=== PATIENT | female | born 1935 | race Hispanic/Latino ===

== ENCOUNTER 2017-08-26 19:39 | Observation (INO) | payer OTHER ==
[~2017-08-26] VITALS: Ht 160 cm; Wt 77.6 kg
[~2017-08-26 19:39] MED LIST: B12 IM; DEXILANT60 MG PO; LOVENOX40 MG/0.4 SC; NORCO 7.5-3251 EACH PO; PEPTO-BISM262 MG/15 PO; VICODIN; VIT D; VITAMIN D; Z.0.NEXIUM40 MG PO; [UNRECOGNIZED DRUG - OTHER] PO
--- NOTE | 2017-08-26 21:21 | Diagnostic Imaging Report ---
History:Blurry vision, Comparison studies:None Technique: Axial images were obtained from the skull base to the vertex. Coronal and sagittal images reconstructed from the axial data. Intravenous contrast: None Findings: Scalp/skull: No acute abnormalities. Right parietal hemangioma. Extra-axial spaces: No masses. No fluid collections. Brain sulci: Mildly prominent. Ventricles: Mild compensatory dilatation. No hydrocephalus. Parenchyma: Few hypodensities in the supratentorial white matter are small vessel ischemic changes. Left thalamocapsular and subinsular small chronic lacunar infarcts. No masses, hemorrhage, acute or chronic cortical vascular insults. Sellar/suprasellar region: No abnormalities. Craniocervical junction: Patent foramen magnum. No Chiari one malformation. Incidental findings: Atherosclerotic calcifications in the carotid siphons . Impression: No acute abnormalities. Chronic findings: 1. Mild generalized volume loss. 2. Mild supratentorial white matter small vessel ischemic changes. Signed by: DR Aba Kumari M.D. on 08/26/2017 9:18 PM
[2017-08-26] MEDS ORDERED: SODIUM CHLORIDE 0.9% 1000ML 1,000 ML IV STA (23:03)
[2017-08-26] MEDS ORDERED: ASPIRIN 325 MG TAB EC PO STA (23:03)
[2017-08-26] MEDS ORDERED: ASPIRIN 325 MG TAB ONE (23:18)
[2017-08-26 23:31] LABS: BASOPHILS # (AUTO) 0.1 (0.0-0.1); BASOPHILS % 0.8 % (0.0-1.0); EOSINOPHILS # (AUTO) 0.3 (0.0-0.4); EOSINOPHILS % 4.4 % (0.0-6.0); HEMATOCRIT 36.4 % (34.2-44.1); HEMOGLOBIN 11.9 g/dL (12.0-16.0); LYMPHOCYTES # (AUTO) 3.4 (1.0-3.2); LYMPHOCYTES % 51.6 % (18.0-39.1); MEAN CORPUSCULAR HEMOGLOBIN 30.1 pg (28-32); MEAN CORPUSCULAR HGB CONC 32.7 g/dL (31-35); MEAN CORPUSCULAR VOLUME 91.9 fL (81-99); MONOCYTES # (AUTO) 0.4 (0.2-0.8); MONOCYTES % 5.3 % (4.4-11.3); NEUTROPHILS # (AUTO) 2.5 (2.1-6.9); NEUTROPHILS % 37.4 % (38.7-80.0); PLATELET COUNT 146 x10e3/uL (140-360); RED BLOOD COUNT 3.96 x10e6/uL (3.6-5.1); RED CELL DISTRIBUTION WIDTH 15.6 % (11.7-14.4)
[2017-08-26 23:41] LABS: INR 0.92; PROTHROMBIN TIME 12.8 seconds (11.9-14.5)
[2017-08-26 23:48] LABS: ALANINE AMINOTRANSFERASE 12 IU/L (0-55); ALBUMIN 3.7 g/dL (3.5-5.0); ALBUMIN/GLOBULIN RATIO 1.5 (0.8-2.0); ALKALINE PHOSPHATASE 61 IU/L (40-150); ANION GAP 10.4 mmol/L (8-16); BLOOD UREA NITROGEN 18 mg/dL (7-26); BUN/CREATININE RATIO 25 (6-25); CALCIUM 9.4 mg/dL (8.4-10.2); CARBON DIOXIDE 28 mmol/L (22-29); CHLORIDE 100 mmol/L (98-107); CREATINE KINASE 30 IU/L (29-168); CREATININE, SERUM 0.73 mg/dL (0.57-1.11); EST GLOMERULAR FILTRATION RATE > 60 ML/MIN (60-); GLUCOSE 119 mg/dL (74-118); MAGNESIUM 1.9 MG/DL (1.3-2.1); POTASSIUM 3.4 mmol/L (3.5-5.1); SODIUM 135 mmol/L (136-145)
--- NOTE | 2017-08-26 23:54 | Diagnostic Imaging Report ---
EXAMINATION: CHEST SINGLE (PORTABLE) INDICATION: Blurred vision COMPARISON: None FINDINGS: TUBES and LINES: None. LUNGS: Lungs are well inflated. There are bibasilar atelectasis. There is mild prominence of the central pulmonary vasculature, consistent with pulmonary venous congestion. PLEURA: No pleural effusion or pneumothorax. HEART AND MEDIASTINUM: The cardiomediastinal silhouette is unremarkable. BONES AND SOFT TISSUES: No acute osseous lesion. Soft tissues are unremarkable. UPPER ABDOMEN: No free air under the diaphragm. IMPRESSION: No acute thoracic abnormality. Signed by: Dr. Ivan Luo M.D. on 08/26/2017 11:51 PM
[2017-08-27] VITALS (8 sets, daily range): BP systolic 121–148; BP diastolic 56–91
[2017-08-27 00:24] LABS: BILIRUBIN,URINE NEGATIVE (NEGATIVE); KETONES,URINE NEGATIVE (NEGATIVE); LEUKOCYTE ESTERASE ,URINE TRACE (NEGATIVE); NITRITE,URINE NEGATIVE (NEGATIVE); PROTEIN,URINE DIPSTICK NEGATIVE (NEGATIVE); URINE UROBILINOGEN 0.2 mg/dL (0.2 - 1)
[2017-08-27 00:26] LABS: CLARITY,URINE SL CLOUDY (CLEAR); COLOR,URINE YELLOW (YELLOW)
[2017-08-27 00:36] LABS: BACTERIA,URINE FEW /HPF; EPITHELIAL CELLS,URINE FEW /LPF; MUCUS,URINE FEW (RARE); RBC,URINE 0-5 /HPF (0-5)
[2017-08-27] MEDS ORDERED: SODIUM CHLORIDE 0.9% 1000ML 1,000 ML IV SCH (00:39)
[2017-08-27 08:39] LABS: CREATINE KINASE MB 0.9 ng/mL (0.00-5.00)
[2017-08-27] MEDS ORDERED: HYDROCODONE/APAP 7.5MG-325MG 1 EA TAB PO PRN (08:45)
[2017-08-27] MEDS ORDERED: MECLIZINE HCL 12.5 MG TAB PO PRN (08:45)
[2017-08-27] MEDS: [UNRECOGNIZED DRUG - OTHER] PO SCH (09:00)
[2017-08-27] MEDS ORDERED: POTASSIUM CHLORIDE 10 MEQ TABCR PO NR (09:00)
[2017-08-27] MEDS: PANTOPRAZOLE SOD 40 MG TABEC PO SCH (09:13)
[2017-08-27] MEDS: ASPIRIN 325 MG TAB EC PO SCH (09:13)
[2017-08-27] MEDS: ENOXAPARIN SOD INJ 40 MG/0.4 ML SYR SC SCH (09:13)
--- NOTE | 2017-08-27 13:32 | History and Physical ---
Patient in observation. CHIEF COMPLAINT: Dizziness and lightheadedness with sitting and standing up. HISTORY: Patient is an 82-year-old female who lives by herself. She usually walks with a walker. Apparently yesterday, she had an episode of vertigo. She did not have any significant weakness, any chest pain or shortness of breath. Patient's EKG in the emergency room was otherwise normal sinus rhythm. No sign of arrhythmia. Patient also complained of some vision changes while she was having dizziness. She is completely back to normal now. She has no further symptoms at this time. No dizziness. No chest pain and no shortness of breath. PAST MEDICAL HISTORY: History of leukemia, lymphoma. She has also recurrent vertigo episodes with previous workup. Chronic osteoarthritic pain. She has a pain stimulator to the back and the left knee for chronic pain control. Overactive urinary bladder. SOCIAL HISTORY: Again, the patient lives by herself. She does have family support. No smoking. No regular drug use. No alcohol use. ALLERGIES: NO KNOWN ALLERGIES. HOME MEDICATIONS: [place], Dexilant, . PHYSICAL EXAMINATION VITAL SIGNS: Temperature is 98, blood pressure 140/63, pulse rate 68, respirations 18. GENERAL: The patient is not in acute distress. She is awake. HEENT: Normocephalic, atraumatic and nonicteric. NECK: Supple grossly. PULMONARY: Diminished breath sounds without any gross wheezes. CARDIOVASCULAR: Regular rate and rhythm. ABDOMEN: Soft and unremarkable. EXTREMITIES: No cyanosis or edema. NEUROLOGICAL: There is no gross focal deficit. Moving all extremities. LABORATORY: Sodium is 135, potassium 3.4, chloride 100, bicarb 28, BUN is 18, creatinine 0.7, glucose 118. WBC is 6.6, hemoglobin 11.9, hematocrit 36.4, and platelets 146,000. Urinalysis unremarkable. Coagulation is normal. CT scan of the brain and chest x-ray is otherwise unremarkable. IMPRESSION 1. Dizziness, resolved now: Most likely benign positional vertigo. Unlikely arrhythmia or any other abnormality. 2. Chronic baseline problems with recurrent vertigo episode. PLAN: Aspirin once a day. PT and OT today. Trial of meclizine. Get echocardiogram and carotid Doppler for baseline study. Will continue to keep the patient in observation for now. Job#: [id number] RI
[2017-08-27] MEDS: MECLIZINE HCL 12.5 MG TAB PO SCH ×2 (14:12→21:57)
--- NOTE | 2017-08-27 22:46 | Consultation ---
DATE OF CONSULTATION: August 27, 2017 NEUROLOGICAL CONSULTATION AGE: 82 DATE OF : 1935 TIME OF CONSULTATION: 5:00 p.m. REASON FOR CONSULTATION: Vertigo. HISTORY: This is an 82-year-old female, who has history of leukemia. She was at home. She lives alone. She was sitting, she stood, had sudden onset of dizziness, which she describes as spinning sensation of the head and the room. Her speech apparently became slower. There was no nausea, no vomiting. There was some blurred vision, but there was no diplopia, no facial paresthesia, no focal paresthesia of the arms or legs. She denies any loss of consciousness. She called the family, who finally brought her to the emergency room. Patient some time ago she fell and hit 1 side of the head and then, having this little dizzy spells. She has suffered dizzy spell for a long time because of history of pernicious anemia. She has been getting vitamin B12, and now, there has been diagnosis of leukemia over a week with history of chemotherapy. Occasionally, she says, she has some numbness, tingling sensation of both feet. No lower extremity pain, knee pain or the arms. She denies any diplopia, no speech, no swallowing difficulty at the present time. No chest pain or palpitation. PAST HISTORY: History of leukemia, lymphoma. She has chronic osteoarthritis, pain in the left leg after surgery and she has pain stimulator in the back. She does no smoking. She does not do drugs. No alcohol. ALLERGIES: NONE KNOWN. MEDICATIONS: She is taking Dexilant, [place]. Today's review, she is taking medication of meclizine, acetaminophen. She denies hypertension, diabetes, heart condition. She does have history of pernicious anemia and now, the history of leukemia. ALLERGIES: NONE KNOWN. SOCIAL HISTORY: As mentioned above. FAMILY HISTORY: Noncontributory. PHYSICAL EXAMINATION VITALS: Blood pressure 120/60, pulse 55, temperature 97.5. LUNGS: Clear to auscultation. HEART: Regular, sinus rhythm. No murmurs. ABDOMEN: Soft, nontender. No organomegaly. LOWER EXTREMITIES: No edema, no cyanosis, no clubbing. Pain in the left knee from previous surgery. NEURO: She is alert, oriented times 3. Speech clear. No dysarthria or dysphagia. CRANIAL NERVES: Pupils are both equal and reactive. Extraocular ocular movements were full. Visual field was normal. No facial weakness. Tongue protrudes midline. MOTOR POWER: Upper extremities shows no evidence of weakness in proximal or distal muscles. Lower extremities, able to elevate against gravity on right side, approximately 60 degrees on the left side. There is problem because of surgery in the left knee and is painful. Plantar flexion 5/5. Dorsiflexion of the ankle 5/5. No weakness detected. DEEP TENDON REFLEXES: Triceps, biceps, and radials are 1+. Knee jerks absent bilaterally. Ankle jerks absent bilaterally. Plantar stimulation down bilaterally. SENSORY: Touch and pinprick of the lower extremities seem to be okay. Vibration sense is diminished up to the ankles. HEAD: Normocephalic. NECK: Supple. Carotid pulsations are present bilaterally. There are no bruits. LABORATORY WORKUP: CBC was reviewed, which showed normal platelets 146,000. Chemistry: Sodium 154, potassium 3.4, BUN 18, creatinine 0.73. Estimated GFR 160. Liver enzymes are all normal. TSH normal. Vitamin B12 is 141. Patient receiving vitamin B12 shots, has long history of pernicious anemia. Urinalysis WBC 6-10, bacteria few, protein negative, blood trace. Urine culture pending. IMAGING: CT scan of the brain shows no acute pathology. There is some chronic small-vessel disease seen bilaterally. Carotid Doppler showed no evidence of flow impairment. IMPRESSIONS 1. Episodes of vertigo associated with blurred vision, spinning sensation, loss of balance, probably vestibular dysfunction. 2. Episodes of positional dizziness. 3. Questionable transient ischemic attack. 4. Leukemia. 5. Possible urinary tract infection. Will discuss with the patient. I talked to the also. I do not see we are dealing with anything serious. Definitely, main worry they have is the possibility of stroke. There is no evidence to suggest any significant stroke at all. I think the combination of leukemia, pernicious anemia seemed to be causing the probable unsteadiness and probable dizziness. At present time, I have no further testing for this patient. It was instructed she has to move slow. She has to avoid bending over or moving fast. Job#: [id number] CQ
[2017-08-28] VITALS: BP_SYST 117; BP_SYST 132; BP_DIAS 63; BP_DIAS 72
[2017-08-28 04:00] VITALS: BP 125/59
[2017-08-28] MEDS: MECLIZINE HCL 12.5 MG TAB PO SCH ×2 (05:34→16:01)
[2017-08-28 07:17] LABS: BLOOD UREA NITROGEN 14 mg/dL (7-26); BUN/CREATININE RATIO 21 (6-25); CALCIUM 8.7 mg/dL (8.4-10.2); CARBON DIOXIDE 30 mmol/L (22-29); CHLORIDE 106 mmol/L (98-107); CREATININE, SERUM 0.66 mg/dL (0.57-1.11); EST GLOMERULAR FILTRATION RATE > 60 ML/MIN (60-); GLUCOSE 84 mg/dL (74-118); SODIUM 142 mmol/L (136-145)
[2017-08-28 08:14] VITALS: BP 129/69
[2017-08-28] MEDS: ASPIRIN 325 MG TAB EC PO SCH (08:54)
[2017-08-28] MEDS: PANTOPRAZOLE SOD 40 MG TABEC PO SCH (08:54)
[2017-08-28] MEDS: ENOXAPARIN SOD INJ 40 MG/0.4 ML SYR SC SCH (08:54)
[2017-08-28] MEDS: [UNRECOGNIZED DRUG - OTHER] PO SCH (08:54)
[2017-08-28] MEDS ORDERED: ACETAMINOPHEN 325 MG TAB PO ONE (11:45)
[2017-08-28] MEDS ORDERED: ACETAMINOPHEN 325 MG TAB PO PRN (11:45)
[2017-08-28 14:03] VITALS: BP 122/62
[2017-08-28 17:01] VITALS: BP 126/58
--- NOTE | 2017-08-28 19:22 | Discharge Summary ---
Primary care physician: Dr. Sia Felix. Reformatory Attendant: Dr. Danish Venegas. FINAL DIAGNOSES: 1. Benign positional vertigo. 2. Dizziness, headaches, resolved. SUMMARY: An 82-year-old female with some dizziness. The patient has had previous dizziness, found to be sinus. The patient is otherwise stable. Meclizine did help. Dr. Venegas saw the patient. No further workup needed at this time. Carotid Doppler otherwise unremarkable. No blockage. CT scan unremarkable. Echocardiogram ejection fraction of 60%. Mild to moderate MR and mild PI along with left anterior enlargement, but the no sign of significant other abnormality acutely. Patient stable and discharged home with Claritin 10 mg daily, Zofran ODT for nausea and vomiting and on meclizine 12.5 mg q.6 hour p.r.n. for dizziness. Patient stable and discharged home today to follow up with Dr. Felix if any further symptoms. Job#: [id number]
== END 2017-08-28 18:28 | disposition home or self-care (01) ==
LOC: ER 19:39 → MED/SURG 08-27 01:05
PROVIDERS: ADMIT Internal Medicine; ATTEND Internal Medicine
DX: H81.10 Benign paroxysmal vertigo, unspecified ear (principal); C95.90 Leukemia, unspecified not having achieved remission; M19.90 Unspecified osteoarthritis, unspecified site; M25.562 Pain in left knee; M54.9 Dorsalgia, unspecified; G89.29 Other chronic pain; D51.0 Vitamin B12 deficiency anemia due to intrinsic factor deficiency; I34.0 Nonrheumatic mitral (valve) insufficiency; I37.1 Nonrheumatic pulmonary valve insufficiency; Z85.72 Personal history of non-Hodgkin lymphomas
CPT/HCPCS: 36415 ×2; 70450; 71045; 80048; 80053; 81001; 82550 ×2; 82553 ×2; 82607; 83735; 84443; 84484 ×2; 85025; 85610; 85730; 87086; 93005; 93306; 93880; 96360; 97116 ×2; 97161; 97530; 99284; G0378 ×2; J1650 ×2; J7030 ×2

== ENCOUNTER → 2017-11-13 | Day surgery (SDC) | payer OTHER ==
[~2017-11-13] MED LIST changes: +BUPIVACAINE 0.25%/EPI 30ML SDV INJ ONE; +DEXAMETHASONE SOD PHOS INJ 4 MG/ML VIAL ONE; +FENTANYL CITRATE/PF 100MCG/2 ML INJ ONE; +HYDROCODONE/APAP 7.5MG-325MG 1 EA TAB ONE; +LIDOCAINE HCL 2% LOCAL INJ 5 ML SDV VIAL INJ ONE; +ONDANSETRON HCL INJ 2 MG/ML VIAL ONE; +PROPOFOL IV EMULSION 10 MG/ML 20 ML VIAL ONE; +ROCURONIUM BROMIDE 10 MG/ML 5ML VIAL ONE; +SEVOFLURANE INHAL SOLN 250 ML PEN BTL ONE
--- OUTSIDE RECORDS SUMMARY | 2017-11-13 08:15 | XMS REPORT ---
Author Author [facility] Address Unknown Phone Unavailable Care Team Providers Care Corporate Health Consultant Name Role Phone SOHEILA MARTINEZ Unavailable Unavailable Problems This patient has no known problems. Allergies, Adverse Reactions, Alerts This patient has no known allergies or adverse reactions. Medications This patient has no known medications. Results Test Description Test Time Test Comments Text Results Atomic Results Result Comments CHEST SINGLE (PORTABLE) [place] [address] Patient Name: YOLA GODOY MR #: [id number] : 1935 Age/Sex: 82/F Req #: [id number] Adm Physician: Ordered by: SOHEILA MARTINEZ MD Report #: [id number] Location: ER Room/Bed: Procedure: [id number] DX/CHEST SINGLE (PORTABLE) Exam Date: 08/26/17 Exam Time: 2330 REPORT STATUS: Signed EXAMINATION: CHEST SINGLE (PORTABLE) INDICATION: Blurred vision COMPARISON: None FINDINGS: TUBES and LINES: None. LUNGS: Lungs are well inflated. There are bibasilar atelectasis. There is mild prominence of the central pulmonary vasculature, consistent with pulmonary venous congestion. PLEURA: No pleural effusion or pneumothorax. HEART AND MEDIASTINUM: The cardiomediastinal silhouette is unremarkable. BONES AND SOFT TISSUES: No acute osseous lesion. Soft tissues are unremarkable. UPPER ABDOMEN: No free air under the diaphragm. IMPRESSION: No acute thoracic abnormality. Signed by: Dr. Ivan Luo M.D. on 08/26/2017 11:51 PM Dictated By: IVAN DEL CID MD 50 Transcribed By: ORLY on 08/26/172350 COPY TO: SOHEILA MARTINEZ MD CT BRAIN WO [place] [address] Patient Name: YOLA GODOY MR #: [id number] : 1935 Age/Sex: 82/F Req # : [id number] Adm Physician: Ordered by: SOHEILA MARTINEZ MD Report #: [id number] Location: ER Room/Bed: Procedure: [id number] CT/CT BRAIN WO Exam Date: 08/26/17 Exam Time: 2009 REPORT STATUS: Signed History:Blurry vision, Comparison studies:None Technique: Axial images were obtained from the skull base to the vertex. Coronal and sagittal images reconstructed from the axial data. Intravenous contrast: None Findings: Scalp/skull: No acute abnormalities. Right parietal hemangioma. Extra-axial spaces: No masses. No fluid collections. Brain sulci: Mildly prominent. Ventricles : Mild compensatory dilatation. No hydrocephalus. Parenchyma: Few hypodensities in the supratentorial white matter are small vessel ischemic changes. Left thalamocapsular and subinsular small chronic lacunar infarcts. No masses, hemorrhage, acute or chronic cortical vascular insults. Sellar/ suprasellar region: No abnormalities. Craniocervical junction: Patent foramen magnum. No Chiari one malformation. Incidental findings: Atherosclerotic calcifications in the carotid siphons . Impression: No acute abnormalities. Chronic findings: 1. Mild generalized volume loss. 2. Mild supratentorial white matter small vessel ischemic changes. Signed by: DR Aba Kumari M.D. on 08/26/2017 9:18 PM Dictated By: ABA DAVIS MD 17 COPY TO: SOHEILA MARTINEZ MD
[2017-11-13 09:41] LABS: BASOPHILS % 0.4 % (0.0-1.0); EOSINOPHILS # (AUTO) 0.2 (0.0-0.4); EOSINOPHILS % 2.7 % (0.0-6.0); HEMATOCRIT 38.2 % (34.2-44.1); HEMOGLOBIN 12.5 g/dL (12.0-16.0); LYMPHOCYTES # (AUTO) 2.1 (1.0-3.2); LYMPHOCYTES % 37.4 % (18.0-39.1); MEAN CORPUSCULAR HGB CONC 32.7 g/dL (31-35); MEAN CORPUSCULAR VOLUME 91.8 fL (81-99); MONOCYTES # (AUTO) 0.5 (0.2-0.8); MONOCYTES % 8.6 % (4.4-11.3); NEUTROPHILS # (AUTO) 2.8 (2.1-6.9); NEUTROPHILS % 50.7 % (38.7-80.0); PLATELET COUNT 176 x10e3/uL (140-360); RED BLOOD COUNT 4.16 x10e6/uL (3.6-5.1); RED CELL DISTRIBUTION WIDTH 13.6 % (11.7-14.4)
[2017-11-13 10:00] LABS: CLARITY,URINE SL CLOUDY (CLEAR); COLOR,URINE YELLOW (YELLOW)
[2017-11-13 10:01] LABS: BILIRUBIN,URINE NEGATIVE (NEGATIVE); KETONES,URINE NEGATIVE (NEGATIVE); LEUKOCYTE ESTERASE ,URINE NEGATIVE (NEGATIVE); NITRITE,URINE NEGATIVE (NEGATIVE); PROTEIN,URINE DIPSTICK NEGATIVE (NEGATIVE); URINE UROBILINOGEN 0.2 mg/dL (0.2 - 1)
[2017-11-13 10:02] LABS: ALANINE AMINOTRANSFERASE 17 IU/L (0-55); ALBUMIN 4.1 g/dL (3.5-5.0); ALBUMIN/GLOBULIN RATIO 1.6 (0.8-2.0); ALKALINE PHOSPHATASE 62 IU/L (40-150); ANION GAP 12.5 mmol/L (8-16); BLOOD UREA NITROGEN 20 mg/dL (7-26); BUN/CREATININE RATIO 28 (6-25); CARBON DIOXIDE 30 mmol/L (22-29); CHLORIDE 104 mmol/L (98-107); CREATININE, SERUM 0.72 mg/dL (0.57-1.11); EST GLOMERULAR FILTRATION RATE > 60 ML/MIN (60-); GLUCOSE 92 mg/dL (74-118); POTASSIUM 3.5 mmol/L (3.5-5.1); SODIUM 143 mmol/L (136-145)
--- NOTE | 2017-11-13 10:10 | Diagnostic Imaging Report ---
PROCEDURE:CHEST 2 VIEWS TECHNIQUE:PA and lateral chest INDICATION:Preoperative evaluation for gallbladder surgery. COMPARISON:Patients [facility], DX, CHEST SINGLE (PORTABLE), 08/26/2017, 23:40. FINDINGS: Lungs are clear and symmetrically inflated. No pleural effusions. Normal heart size. Mildly tortuous thoracic aorta. Intact skeleton. Right humerus ligamentous anchor. CONCLUSION: No acute abnormality or interval change from August 2017. Dictated by: David Werner M.D. on 11/13/2017 at 10:11 Electronically approved by: David Werner M.D. on 11/13/2017 at 10:11
--- NOTE | 2017-11-13 16:30 | Operative Report ---
DATE OF PROCEDURE: November 13, 2017 PREOPERATIVE DIAGNOSES: 1. Cholecystitis. 2. Cholelithiasis. 3. Incarcerated umbilical hernia. POSTOPERATIVE DIAGNOSES: 1. Cholecystitis. 2. Cholelithiasis. 3. Incarcerated umbilical hernia. OPERATION PERFORMED: Laparoscopic cholecystectomy and repair of incarcerated umbilical hernia. ICT PROGRAMMER: HORTENCIA Feng. ANESTHESIA: General. COMPLICATIONS: None. ESTIMATED BLOOD LOSS: Minimal. DESCRIPTION OF PROCEDURE: With the patient lying in bed in the supine position and good general endotracheal anesthesia, the abdomen was prepped with Betadine solution and draped in the usual manner. A Veress needle was introduced into the right upper quadrant and pneumoperitoneum established without any difficulty. A 5 mm trocar was placed in the right subcostal region and a 5 mm video laparoscope was placed into the intra-abdominal cavity. Video laparoscopy at this point revealed as expected the umbilical hernia that had some incarcerated omentum contained within it. There were also some adhesions to the subumbilical area from the patient's previous surgeries. Another 5 mm trocar was placed in the right subcostal region and all of the adhesions were slowly and carefully taken down off of the anterior abdominal wall and the hernia contents were reduced back to the intra-abdominal cavity. After this was done an incision was made in the subumbilical area, carried down through the subcutaneous tissue and the hernia sac was then dissected circumferentially. The umbilicus was then detached from the hernia sac and hernia sac was opened and the excess was resected. An 11 mm trocar was then placed through the hernia defect and a 10 mm video laparoscope was placed into the intraabdominal cavity. Under direct vision another 5 mm trocar was placed in the right subcostal region. Video laparoscopy at this point revealed a distended gallbladder and no other abdominal findings other than the previously described adhesions and some omental adhesions to the gallbladder itself. The adhesions to the gallbladder were then taken down without any difficulty and the peritoneum overlying neck of the gallbladder was opened. The cystic duct was identified and followed to its junction with common duct. The cystic duct was then circumferentially dissected away from the common duct, doubly clipped and divided. Cystic artery was similarly doubly clipped and divided. The gallbladder was then slowly and carefully taken off of the liver bed using the cautery scissors and perfect hemostasis was ascertained. The gallbladder was grasped through the umbilical port and removed without any difficulty. Video laparoscopy was then again carried out. The liver bed was found to be perfectly dry. All the excess fluid was aspirated. The pneumoperitoneum was evacuated and all the trocars were removed under direct vision. The previously dissected hernia was then closed transversely using interrupted sutures of 0 Ethibond totally obliterating the defect without any tension. All layers were infiltrated on the way out with solution of 1/4 percent Marcaine. The umbilicus was then tacked back down to the midline fascia with 3-0 Vicryl. The subcutaneous tissue was approximated with 3-0 Vicryl and all puncture wounds were closed with subcuticular 5-0 Vicryl. Benzoin, Steri-Strips and dressings were applied. The sponge, lap, and needle count was correct. The patient tolerated the procedure well and returned to the recovery room in stable condition. Job#: [id number] HAMIDA
== END | disposition home or self-care (01) ==
LOC: OR 08:10
PROVIDERS: ATTEND Surgery
DX: K80.10 Calculus of gallbladder with chronic cholecystitis without obstruction (principal); K42.0 Umbilical hernia with obstruction, without gangrene; K82.8 Other specified diseases of gallbladder; G47.33 Obstructive sleep apnea (adult) (pediatric); R00.1 Bradycardia, unspecified
CPT/HCPCS: 36415; 47562; 49587; 71046; 80053; 81003; 85025; 88304; 93005; C1766; J1100; J2001; J2405

== ENCOUNTER 2018-09-20 16:57 | Observation (INO) | payer MEDICARE, OTHER ==
[~2018-09-20] VITALS: Ht 160 cm; Wt 74.6 kg
[~2018-09-20 16:57] MED LIST changes: -BUPIVACAINE 0.25%/EPI 30ML SDV INJ ONE; -DEXAMETHASONE SOD PHOS INJ 4 MG/ML VIAL ONE; -FENTANYL CITRATE/PF 100MCG/2 ML INJ ONE; -HYDROCODONE/APAP 7.5MG-325MG 1 EA TAB ONE; -LIDOCAINE HCL 2% LOCAL INJ 5 ML SDV VIAL INJ ONE; -ONDANSETRON HCL INJ 2 MG/ML VIAL ONE; -PROPOFOL IV EMULSION 10 MG/ML 20 ML VIAL ONE; -ROCURONIUM BROMIDE 10 MG/ML 5ML VIAL ONE; -SEVOFLURANE INHAL SOLN 250 ML PEN BTL ONE
[2018-09-20] MEDS ORDERED: LEUKERAN2 MG (17:30)
[2018-09-20] MEDS ORDERED: DICYCLOMINE HCL10 MG PO (17:30)
[2018-09-20] MEDS ORDERED: MELOXICAM7.5 MG PO (17:30)
[2018-09-20] MEDS ORDERED: MECLIZINE HCL12.5 MG PO (17:30)
[2018-09-20 17:50] LABS: BASOPHILS % 0.3 % (0.0-1.0); EOSINOPHILS # (AUTO) 0.1 (0.0-0.4); EOSINOPHILS % 1.3 % (0.0-6.0); HEMATOCRIT 36.9 % (34.2-44.1); HEMOGLOBIN 12.2 g/dL (12.0-16.0); LYMPHOCYTES % 48.4 % (18.0-39.1); MEAN CORPUSCULAR HEMOGLOBIN 29.4 pg (28-32); MEAN CORPUSCULAR HGB CONC 33.1 g/dL (31-35); MEAN CORPUSCULAR VOLUME 88.9 fL (81-99); MONOCYTES # (AUTO) 0.7 (0.2-0.8); MONOCYTES % 10.8 % (4.4-11.3); NEUTROPHILS # (AUTO) 2.4 (2.1-6.9); PLATELET COUNT 146 x10e3/uL (140-360); RED BLOOD COUNT 4.15 x10e6/uL (3.6-5.1); RED CELL DISTRIBUTION WIDTH 13.4 % (11.7-14.4)
[2018-09-20 18:02] LABS: CLARITY,URINE CLEAR (CLEAR); COLOR,URINE YELLOW (YELLOW); LEUKOCYTE ESTERASE ,URINE NEGATIVE (NEGATIVE); NITRITE,URINE NEGATIVE (NEGATIVE); PROTEIN,URINE DIPSTICK NEGATIVE (NEGATIVE)
[2018-09-20 18:03] LABS: BILIRUBIN,URINE NEGATIVE (NEGATIVE); KETONES,URINE 1+ (NEGATIVE); URINE UROBILINOGEN 0.2 mg/dL (0.2 - 1)
[2018-09-20 18:06] LABS: ALANINE AMINOTRANSFERASE 16 IU/L (0-55); ALBUMIN 4.3 g/dL (3.5-5.0); ALKALINE PHOSPHATASE 66 IU/L (40-150); ANION GAP 16.5 mmol/L (8-16); BLOOD UREA NITROGEN 23 mg/dL (7-26); BUN/CREATININE RATIO 30 (6-25); CALCIUM 9.8 mg/dL (8.4-10.2); CARBON DIOXIDE 25 mmol/L (22-29); CHLORIDE 100 mmol/L (98-107); CREATININE, SERUM 0.77 mg/dL (0.57-1.11); EST GLOMERULAR FILTRATION RATE > 60 ML/MIN (60-); GLUCOSE 93 mg/dL (74-118); POTASSIUM 3.5 mmol/L (3.5-5.1); SODIUM 138 mmol/L (136-145)
[2018-09-20 18:12] LABS: BACTERIA,URINE MANY /HPF; EPITHELIAL CELLS,URINE RARE /LPF
--- NOTE | 2018-09-20 18:17 | Diagnostic Imaging Report ---
EXAMINATION: PA and lateral views of the chest. COMPARISON: None CLINICAL HISTORY: chest 2 views DISCUSSION: Lines/tubes: None. Lungs: The lungs are well inflated and clear. No pneumonia or pulmonary edema. Pleura: No pleural effusion or pneumothorax. Heart and mediastinum: The cardiomediastinal silhouette is normal. Bones and soft tissues: No acute bony abnormalities. IMPRESSION: No acute cardiopulmonary abnormalities. Signed by: Dr. Dmitri Powell M.D. on 09/20/2018 6:13 PM
--- NOTE | 2018-09-20 19:09 | NUR ---
Bedside rounds completed with Danielle machinist 2nd shift nurse.
[2018-09-20 19:25] LABS: INR 0.89; PROTHROMBIN TIME 12.9 seconds (11.9-14.5)
[2018-09-20 19:26] LABS: PARTIAL THROMBOPLASTIN TIME 28.6 seconds (23.8-35.5)
[2018-09-20] MEDS ORDERED: ALBUTEROL/IPRATROPIUM 3 ML NEB NEB ONE (19:30)
[2018-09-20] MEDS ORDERED: METHYLPREDNISOLONE SOD SUCC 125 MG/2ML VIAL IV ONE (19:30)
[2018-09-20 19:37] LABS: CREATINE KINASE MB 1.1 ng/mL (0-5.0)
[2018-09-20] MEDS ORDERED: SODIUM CHLORIDE 0.9% 50ML 50 ML ONE (20:31)
[2018-09-20] MEDS ORDERED: IOPAMIDOL 370 MG/ML 200 ML INFUS..BTL INJ ONE (20:31)
--- NOTE | 2018-09-20 20:35 | Diagnostic Imaging Report ---
EXAMINATION: CT scan of the chest with contrast. TECHNIQUE: Helical CT images of the chest were performed from the lung apices to the level of the adrenal glands after the intravenous administration of 100 cc of Isovue 300. Coronal and sagittal reformatted images were obtained.Dose modulation, iterative reconstruction, and/or weight based adjustment of the mA/kV was utilized to reduce the radiation dose to as low as reasonably achievable. COMPARISON: None. CLINICAL HISTORY:Difficulty breathing DISCUSSION: LINES/TUBES: None. LUNGS AND AIRWAYS: Apical pleural-parenchymal scarring. Atelectasis in the lung bases. No pulmonary embolism. PLEURA: No pneumothorax or pleural effusions. HEART AND MEDIASTINUM: The thyroid gland is normal. Heart size is prominent. Mild vascular calcifications LYMPH NODES: There is no mediastinal, hilar or axillary lymphadenopathy. ABDOMEN: Bilateral renal cysts. Cholecystectomy. BONES AND SOFT TISSUES: No acute bony abnormalities. IMPRESSION: No pulmonary embolism. Signed by: Dr. Dmitri Powell M.D. on 09/20/2018 8:32 PM
[2018-09-20] MEDS ORDERED: ONDANSETRON HCL INJ 2MG/ML 2ML 2 MG/ML VIAL IV PRN (21:15)
[2018-09-20] MEDS ORDERED: SODIUM CHLORIDE 0.9% 1000ML 1,000 ML IV ONE (21:15)
[2018-09-20] MEDS ORDERED: CHOLESTYRAMINE P4 GM PO (22:39)
[2018-09-20 23:00] VITALS: BP 146/66
[2018-09-20] MEDS: ALBUTEROL/IPRATROPIUM 3 ML NEB NEB SCH (23:00)
--- NOTE | 2018-09-20 23:30 | NUR ---
RECEIVED PATIENT FROM ER. VIA WHEELCHAIR ACCOMPANIED BY FAMILY MEMBER AND STAFF. PATIENT IS ALERT AND ORIENTED. PATIENT HAS ON GOING 02 AT 2L/MIN AND TELEMETRY WITH PULSE OXIMETER. ASSISTED IN THE BED AND MADE COMFORTABLE.
[2018-09-21] VITALS (9 sets, daily range): BP systolic 111–149; BP diastolic 55–68
[2018-09-21] MEDS: METHYLPREDNISOLONE SOD SUCC 40 MG/ML VIAL 1ML IV SCH ×4 (00:41→17:02)
[2018-09-21 02:20] LABS: CREATINE KINASE MB 1.1 ng/mL (0-5.0)
[2018-09-21] MEDS ORDERED: IOPAMIDOL 370 MG/ML 200 ML INFUS..BTL INJ ONE (02:21)
[2018-09-21] MEDS ORDERED: SODIUM CHLORIDE 0.9% 50ML 50 ML ONE (02:21)
[2018-09-21] MEDS: ALBUTEROL/IPRATROPIUM 3 ML NEB NEB SCH ×2 (03:00→07:35)
[2018-09-21 06:28] LABS: BASOPHILS % 0.1 % (0.0-1.0); HEMATOCRIT 34.7 % (34.2-44.1); HEMOGLOBIN 11.7 g/dL (12.0-16.0); LYMPHOCYTES # (AUTO) 5.5 (1.0-3.2); MEAN CORPUSCULAR HEMOGLOBIN 29.8 pg (28-32); MEAN CORPUSCULAR HGB CONC 33.7 g/dL (31-35); MEAN CORPUSCULAR VOLUME 88.3 fL (81-99); MONOCYTES # (AUTO) 0.3 (0.2-0.8); MONOCYTES % 3.4 % (4.4-11.3); NEUTROPHILS # (AUTO) 2.5 (2.1-6.9); NEUTROPHILS % 30.4 % (38.7-80.0); PLATELET COUNT 132 x10e3/uL (140-360); RED BLOOD COUNT 3.93 x10e6/uL (3.6-5.1); RED CELL DISTRIBUTION WIDTH 13.3 % (11.7-14.4)
[2018-09-21 06:48] LABS: ALANINE AMINOTRANSFERASE 17 IU/L (0-55); ALBUMIN 3.7 g/dL (3.5-5.0); ALBUMIN/GLOBULIN RATIO 1.8 (0.8-2.0); ALKALINE PHOSPHATASE 62 IU/L (40-150); ANION GAP 13.7 mmol/L (8-16); BLOOD UREA NITROGEN 19 mg/dL (7-26); BUN/CREATININE RATIO 26 (6-25); CALCIUM 8.9 mg/dL (8.4-10.2); CARBON DIOXIDE 24 mmol/L (22-29); CHLORIDE 102 mmol/L (98-107); CREATININE, SERUM 0.72 mg/dL (0.57-1.11); EST GLOMERULAR FILTRATION RATE > 60 ML/MIN (60-); GLUCOSE 165 mg/dL (74-118); POTASSIUM 3.7 mmol/L (3.5-5.1); SODIUM 136 mmol/L (136-145)
--- NOTE | 2018-09-21 07:13 | NUR ---
pt resting in bed, family at bedside. no c/o pain or s/s distress at this time. will continue to monitor.
[2018-09-21 07:39] LABS: HYPOCHROMASIA SLIGHT; LYMPHOCYTES % (MANUAL) 53 % (19-48); METAMYELOCYTES % (MANUAL) 1 % (0-0); MONOCYTES % (MANUAL) 4 % (3.4-9.0); MYELOCYTES % (MANUAL) 1 % (0-0); NEUTROPHILS % (MANUAL) 35 % (40-74); PLATELET ESTIMATE SLIGHTLY DECREASED; PLATELET MORPHOLOGY COMMENT NORMAL; RBC MORPHOLOGY COMMENT NORMAL
--- NOTE | 2018-09-21 08:30 | NUR ---
pt had neb tx, became tachycardic and sob, shaking extremities and c/o chest discomfort. placed pt on o2, per tele running SR w/BBB. vs stable. MD on unit and aware. will continue to monitor.
[2018-09-21] MEDS ORDERED: AZITHROMYCIN 250 MG TAB PO ONE (09:00)
[2018-09-21 09:12] LABS: CREATINE KINASE MB 1.1 ng/mL (0-5.0)
[2018-09-21] MEDS: LORATADINE/PSEUDOEPHEDRINE 24 HR SR TAB PO SCH (09:59)
[2018-09-21] MEDS: FLUTICASONE PROPIONATE NASAL SPRAY NS SCH ×2 (09:59→17:02)
--- NOTE | 2018-09-21 12:49 | NUR ---
SOCIAL WORK INITIAL ASSESSMENT Beam Sealer to bedside to discuss plan of care with patient/family. CM/SW role and care transitions discussed. Anticipated discharge plan discussed along with duration of care. CM/SW discussed patients right to make decisions in care. CM/SW work hours given. Patient lives: IN HOUSE BY SELF Admit/Transfer: VIA ED POA/Emergency contact: DAUGHTER BRUCE [phone] AND OTHER DAUGHTER YOLA [phone] Current/Previous Home Health: NONE PCP/Follow-up Care: VIOLETA Current/Previous DME: LOUISE Other Services: NONE Employment Status: RETIRED Areas of Concerns: NONE Referral Needs: NONE Education Needs: NONE IMM/BROWNE given and signed (if applicable): UPON ADMISSION Goal for discharge: RETURN HOME CM/SW left business card at the bedside with contact information. Name and number was also written on the patients whiteboard. Patient verbalized understanding of discussion. CM will follow-up with ongoing discharge and transition of care needs.
[2018-09-21] MEDS: IPRATROPIUM BROMIDE 0.02% 2.5 ML NEB NEB SCH ×2 (13:55→20:30)
--- NOTE | 2018-09-21 14:25 | NUR ---
Visit made by the Spiritual Care Department Pastoral Visitor, Shelli Nolan. PV provided pastoral presence, prayer, hospitality, and supportive listening. Pastoral Visitor informed pt/family of the scope of [employer] and availability. JIMY HACKETT [employer] Utility Worker Spiritual Care Department O: [phone] Pager: [phone] ([phone] number calling from)
[2018-09-21] MEDS ORDERED: MONTELUKAST SODIUM 10 MG TAB PO SCH (21:00)
[2018-09-22] VITALS: BP 122/59
[2018-09-22] MEDS: METHYLPREDNISOLONE SOD SUCC 40 MG/ML VIAL 1ML IV SCH ×2 (00:32→05:34)
[2018-09-22] MEDS: IPRATROPIUM BROMIDE 0.02% 2.5 ML NEB NEB SCH ×2 (01:00→07:05)
[2018-09-22 04:00] VITALS: BP 121/57
--- NOTE | 2018-09-22 07:15 | NUR ---
Rcvd patient in report this am. Patient is asleep in bed at this time. No s/s of distress noted.
[2018-09-22 07:46] VITALS: BP 135/63
[2018-09-22] MEDS: LORATADINE/PSEUDOEPHEDRINE 24 HR SR TAB PO SCH (08:07)
[2018-09-22] MEDS: FLUTICASONE PROPIONATE NASAL SPRAY NS SCH (08:07)
[2018-09-22 08:36] VITALS: BP 135/63
[2018-09-22] MEDS ORDERED: AZITHROMYCIN 250 MG TAB PO SCH (09:00)
--- NOTE | 2018-09-22 09:11 | History and Physical ---
Patient placed in observation on September 20, 2018. CHIEF COMPLAINT: Shortness of breath with exertion. HISTORY: An 83-year-old female with sinus congestion and nasal drip. The patient's saturation was well normal, but when she talked she could not breathe through her nose, and her saturation dropped. The patient was placed in observation for further evaluation. CTA of the chest was negative. PAST MEDICAL HISTORY: Allergic rhinitis and osteoarthritis. PAST SURGICAL HISTORY: Noncontributory. SOCIAL HISTORY: Patient does not smoke or use alcohol. No recreational drugs. ALLERGIES: NO KNOWN ALLERGIES. MEDICATIONS: Leukeran, cholestyramine and meloxicam. REVIEW OF SYSTEMS: As above. Sinus congestion and postnasal drip. PHYSICAL EXAMINATION VITAL SIGNS: Temperature is 97, blood pressure 135/63, pulse rate 70, respirations 18, GENERAL: The patient is not in acute distress. HEENT: Normocephalic, atraumatic and anicteric. NECK: Supple grossly. Sinus congestion. PULMONARY: Clear. CARDIOVASCULAR: Regular rate and rhythm. ABDOMEN: Soft and unremarkable. EXTREMITIES: No cyanosis or edema. NEUROLOGICAL: No gross focal deficit. LABORATORY: Otherwise unremarkable. CTA of the chest negative. IMPRESSION 1. Sinus congestion, most likely secondary to allergic rhinitis. 2. Postnasal drip. 3. Acute hypoxia secondary to sinus congestion. PLAN: Supportive measures. Steroids. Singulair and Claritin D. Antitussive. Flonase. Keflex or azithromycin. Steroids. Patient in observation. Job#: [id number] WERO
--- NOTE | 2018-09-22 09:24 | NUR ---
Removed IV at this time. Pressure dressing applied.
[2018-09-22] MEDS ORDERED: KEFLEX500 MG PO (09:36)
[2018-09-22] MEDS ORDERED: TESSALON PERLE100 MG PO (09:36)
[2018-09-22] MEDS ORDERED: ZYRTEC-D TABLE1 EACH PO (09:37)
--- NOTE | 2018-09-22 09:50 | NUR ---
Patient is AAOx3 some confusion at times. Patient lung conrad diminished to auscultation. Bowel sounds present x4. NO edema noted. No shortness of breath noted. Right AC IV in place. NO s/s of distress noted
--- NOTE | 2018-09-22 09:59 | Discharge Summary ---
PCP: Sia Felix MD FINAL DIAGNOSES 1. Upper respiratory congestion associated with allergic rhinitis most likely. 2. Exertional dyspnea secondary to sinus congestion. 3. Negative CT of the chest. LAB WORK: Otherwise unremarkable. SUMMARY: This is an 83-year-old female with hypoxia when she talks because of sinus congestion. She could not breathe through her nose. The patient is otherwise stable. She was given medications and is doing much better now. CT of the chest was negative. Lab work: WBC was 8.3, hemoglobin 11.7, hematocrit 34.7 and platelets 132. BUN and creatinine are 19 and 0.7 respectively. The patient is otherwise stable. She was discharged home today with Medrol Dosepak, Zyrtec q.12 daily p.r.n., Flonase twice a day, Tessalon Perles p.r.n., Keflex for 5 days and Singulair 10 mg at night. The patient is to follow up with Dr. Felix next week. Patient is stable and discharged home today. Job#: [id number]
--- NOTE | 2018-09-22 10:00 | NUR ---
Patient discharged from facility to home. Patient assisted out via staff in wheelchair. Reviewed all discharge paperwork, follow up appts, and RX's given. NO s/s of distress noted. Family at bedside during review of discharge
--- NOTE | 2018-09-22 12:28 | NUR ---
EDUCATED ABOUT [facility], SIGNED, FILED IN CHART, WITH COPY LEFT WITH FAMILY AT BEDSIDE.
== END 2018-09-22 10:00 | disposition home or self-care (01) ==
LOC: ER 16:57 → ERHOLD 21:41 → MED/SURG 23:30
PROVIDERS: ADMIT Internal Medicine; ATTEND Internal Medicine
DX: R09.81 Nasal congestion (principal); R09.82 Postnasal drip; R09.02 Hypoxemia; M19.90 Unspecified osteoarthritis, unspecified site; R06.00 Dyspnea, unspecified
CPT/HCPCS: 36415; 71046; 71260; 80053 ×2; 81001; 82550 ×2; 82553 ×2; 82948; 83518; 83605 ×2; 84443; 84484 ×2; 85025 ×2; 85379; 85610; 85730; 87040; 87070; 87086; 87400; 93005; 93306; 94640 ×5; 99284; G0378 ×3; J2920 ×2; J2930; J7030; Q9967 ×2

== ENCOUNTER 2018-11-08 20:31 | Emergency (ER) | payer MEDICARE ==
[~2018-11-08] VITALS: Ht 157.5 cm; Wt 83.9 kg
[~2018-11-08 20:31] MED LIST changes: +CHOLESTYRAMINE P4 GM PO; +DICYCLOMINE HCL10 MG PO; +KEFLEX500 MG PO; +LEUKERAN2 MG; +MECLIZINE HCL12.5 MG PO; +MELOXICAM7.5 MG PO; +TESSALON PERLE100 MG PO; +ZYRTEC-D TABLE1 EACH PO
--- NOTE | 2018-11-08 22:52 | Diagnostic Imaging Report ---
Exam: Left hand 3 views History: Pain, fall Comparison: None. Findings: Transverse extra articular fracture proximal phalanx ring finger. Degenerative arthrosis of the interphalangeal joints. No abnormal soft tissue calcification or soft tissue defect. Impression: Transverse extra articular fracture proximal phalanx ring finger. Signed by: Dr. Dmitri Powell M.D. on 11/08/2018 10:49 PM
--- NOTE | 2018-11-08 22:53 | Diagnostic Imaging Report ---
EXAMINATION: Head CT without contrast. HISTORY:Status post fall. COMPARISON:Report of CT brain from 08/26/2017, images of prior study are not available for comparison at the time of interpretation. TECHNIQUE: Multidetector axial images were obtained from the foramen magnum to the vertex without contrast. The images were reconstructed using brain and bone algorithms. Thin section brain images were reformatted into coronal and sagittal planes. Dose modulation, iterative reconstruction, and/or weight based adjustment of the mA/kV was utilized to reduce the radiation dose to as low as reasonably achievable. Intravenous contrast: None IMAGE QUALITY: Acceptable. FINDINGS: Skull/scalp: Unchanged right parietal hemangioma. No acute abnormality. Parenchyma: Nonspecific few, scattered supratentorial white matter patchy hypodensity are likely related to small vessel ischemic changes. No acute hemorrhage, mass or acute major vascular territorial infarct. Arteries: No density suggestive of thrombosis. Dural sinuses: No abnormal density suggestive of thrombosis. Ventricles: Mild compensated dilatation due to volume loss. No hydrocephalus. Extra-axial spaces: No abnormal density. Brain volume: Generalized age-related cerebral volume loss. Craniocervical junction: No mass, Chiari malformation, or basilar invagination. Sella: No mass. Paranasal/mastoid sinuses: Imaged portions unremarkable. IMPRESSION: No acute intracranial abnormality. Generalized age-related cerebral volume loss. Mild supratentorial white matter microvascular ischemic changes. Signed by: Dr. Netta Bey M.D. on 11/08/2018 10:50 PM
--- NOTE | 2018-11-08 23:00 | Diagnostic Imaging Report ---
History: Fall. Comparison studies: None Technique: Axial images were obtained through the cervical region.. Coronal and sagittal images reconstructed from the axial data. Dose modulation, iterative reconstruction, and/or weight based adjustment of the mA/kV was utilized to reduce the radiation dose to as low as reasonably achievable. Intravenous contrast: None Findings: Fractures: None. Soft tissue injuries: None. Atlantoaxial articulation: Intact. Alignment: Normal lordosis. No scoliosis. 1.5 mm grade 1 anterolisthesis at C7-T1. Cervicomedullary junction: No abnormalities. The foramen magnum is patent. Soft tissues: No abnormalities. Vertebrae: No fractures, infection or neoplasm. Diffuse osseous demineralization. Degenerative changes: C4-C5: Mild degenerative disc disease. Severe right and mild left foraminal stenosis due to facet and uncovertebral arthrosis. C5-C6: Mild degenerative disc disease. Mild right and moderate left foraminal stenosis due to facet and uncovertebral arthrosis. C6-C7: Mild degenerative disc disease. Mild right and moderate left foraminal stenosis due to facet and uncovertebral arthrosis. Incidental findin cm spiculated nodule in left lung apex. IMPRESSION: 1. No acute cervical spine fracture or dislocation. 2. Ligament, spinal cord and or vascular abnormalities cannot be excluded on the basis of this examination. 3. Cervical spondylosis as detailed above. Signed by: Dr. Netta Bey M.D. on 11/08/2018 10:56 PM
--- NOTE | 2018-11-09 01:24 | NUR ---
cast padding placed between fingers 3-5 and chao taped fingers 3-5 with paper tape
[2018-11-09] MEDS ORDERED: HYDROCODONE/APAP 5MG-325MG TAB PO ONE (01:30)
[2018-11-09] MEDS ORDERED: BACITRACIN ZINC 0.9GM TP ONE (01:42)
[2018-11-09] MEDS ORDERED: BACITRACIN ZINC 0.9GM TP STA (01:45)
== END 2018-11-09 02:15 | disposition home or self-care (01) ==
LOC: ER 20:31
DX: S01.81XA Laceration without foreign body of other part of head, initial encounter (principal); S00.83XA Contusion of other part of head, initial encounter; M54.2 Cervicalgia; M79.642 Pain in left hand; W18.30XA Fall on same level, unspecified, initial encounter; Y92.008 Other place in unspecified non-institutional (private) residence as the place of occurrence of the external cause
CPT/HCPCS: 70450; 72125; 99284

== ENCOUNTER 2020-01-30 18:56 | Emergency (ER) | payer MEDICARE ==
[~2020-01-30] VITALS: Ht 157.5 cm; Wt 83.9 kg
--- NOTE | 2020-01-30 19:58 | Emergency Department Note ---
History of Present Illnes History of Present Illness Chief Complaint: Abdominal Complaints History of Present Illness This is a 84 year old female REPORTS ABDOMINAL PAIN TO LLQ X1 DAY; PT DENIES ANY N/V/D, LBM TODAY; PT DENIES ANY BURNING WITH URINATION; . Historian: Patient Arrival Mode: Car Onset (how long ago): day(s) (1) Location: llq Quality: pain Radiation: Reports non-radiation Severity: moderate Onset quality: sudden Duration (how long): day(s) (1) Timing of current episode: constant Progression: unchanged Chronicity: new Context: Denies recent illness, Denies recent surgery Relieving factors: none Exacerbating factors: none Associated symptoms: Reports denies other symptoms Treatments prior to arrival: none Past Medical/Family History Physician Review I have reviewed the patient's past medical and family history. Any updates have been documented here. Past Medical History Recent Fever: No Clinical Suspicion of Infectio: No New/Unexplained Change in Ment: No Past Medical History: Cancer, Anemia, Osteoarthritis Other Medical History: LEUKEMIA DEMENTIA OA LYMPHOMA CHRONIC BACK PAIN Past Surgical History: Appendectomy, Other Surgery: LT KNEE SURGERY PAIN MANAGEMENT DEVICE Social History Smoking Cessation: Never Smoker Counseling Performed: No Alcohol Use: None Any Illegal Drug Use: No TB Exposure/Symptoms: No Physically hurt or threatened: No Family History Family history of heart diseas: No Other Last Tetanus: <10 YRS Any Pre-Existing Lines (PICC,: No Is patient up to date on immun: Yes Last Flu: DENIES Last Pneumovax: UTD Review of Systems Review of Systems Constitutional: Reports no symptoms EENTM: Reports no symptoms Cardiovascular: Reports no symptoms Respiratory: Reports no symptoms Gastrointestinal: Reports as per HPI Genitourinary: Reports no symptoms Musculoskeletal: Reports no symptoms Integumentary: Reports no symptoms Neurological: Reports no symptoms Psychological: Reports no symptoms Endocrine: Reports no symptoms Hematological/Lymphatic: Reports no symptoms Physical Exam Related Data Allergies: Coded Allergies: No Known Drug Allergies (Verified Allergy, Unknown, 09/20/18) Triage Vital Signs Vital Signs Date Time Temp Pulse Resp B/P (MAP) Pulse Ox O2 Delivery O2 Flow Rate FiO2 01/30/20 19:44 98.2 78 16 124/67 96 Vital signs reviewed: Yes Physical Exam CONSTITUTIONAL Constitutional: Present well-developed, Present well-nourished HENT HENT: Present normocephalic, Present atraumatic, Present oropharynx clear/moist, Present nose normal HENT L/R: Present left ext ear normal, Present right ext ear normal EYES Eyes: Reports PERRL, Reports conjunctivae normal NECK Neck: Present ROM normal PULMONARY Pulmonary: Present effort normal, Present breath sounds normal CARDIOVASCULAR Cardiovascular: Present regular rhythm, Present heart sounds normal, Present capillary refill normal, Present normal rate GASTROINTESTINAL Abdominal: Present soft, Present bowel sounds normal, Present tender (llq) GENITOURINARY Genitourinary: Present exam deferred SKIN Skin: Present warm, Present dry MUSCULOSKELETAL Musculoskeletal: Present ROM normal NEUROLOGICAL Neurological: Present alert, Present oriented x 3, Present no gross motor or sensory deficits PSYCHOLOGICAL Psychological: Present mood/affect normal, Present judgement normal Results Laboratory Laboratory Laboratory Tests Test 01/30/20 19:10 White Blood Count 14.15 x10e3/uL (4.8-10.8) Red Blood Count 3.11 x10e6/uL (3.6-5.1) Hemoglobin 9.8 g/dL (12.0-16.0) Hematocrit 31.5 % (34.2-44.1) Mean Corpuscular Volume 101.3 fL (81-99) Mean Corpuscular Hemoglobin 31.5 pg (28-32) Mean Corpuscular Hemoglobin Concent 31.1 g/dL (31-35) Red Cell Distribution Width 14.6 % (11.7-14.4) Platelet Count 132 x10e3/uL (140-360) Neutrophils (%) (Auto) 15.8 % (38.7-80.0) Lymphocytes (%) (Auto) 69.0 % (18.0-39.1) Monocytes (%) (Auto) 14.1 % (4.4-11.3) Eosinophils (%) (Auto) 0.6 % (0.0-6.0) Basophils (%) (Auto) 0.3 % (0.0-1.0) Neutrophils # (Auto) 2.2 (2.1-6.9) Lymphocytes # (Auto) 9.8 (1.0-3.2) Monocytes # (Auto) 2.0 (0.2-0.8) Eosinophils # (Auto) 0.1 (0.0-0.4) Basophils # (Auto) 0.0 (0.0-0.1) Absolute Immature Granulocyte (auto 0.03 x10e3/uL (0-0.1) Differential Total Cells Counted 100 Neutrophils % (Manual) 16 % (40-74) Lymphocytes % (Manual) 81 % (19-48) Monocytes % (Manual) 1 % (3.4-9.0) Reactive Lymphocytes 2 Platelet Estimate Adequate Platelet Morphology Comment Normal Red Cell Morphology Comment Normal Urine Color Yellow (YELLOW) Urine Clarity Sl cloudy (CLEAR) Urine pH 7 (5 - 7) Urine Specific [place] 1.030 (1.010-1.025) Urine Protein Negative (NEGATIVE) Urine Glucose (UA) Negative (NEGATIVE) Urine Ketones Negative (NEGATIVE) Urine Blood Trace (NEGATIVE) Urine Nitrite Negative (NEGATIVE) Urine Bilirubin Negative (NEGATIVE) Urine Urobilinogen 1 mg/dL (0.2 - 1) Urine Leukocyte Esterase Negative (NEGATIVE) Urine RBC 6-10 /HPF (0-5) Urine WBC None /HPF (0-5) Urine Epithelial Cells Few /LPF (NONE) Urine Amorphous Sediment Moderate (FEW) Urine Bacteria Moderate /HPF (NONE) Sodium Level 140 mmol/L (136-145) Potassium Level 4.0 mmol/L (3.5-5.1) Chloride Level 104 mmol/L (98-107) Carbon Dioxide Level 31 mmol/L (22-29) Anion Gap 9.0 mmol/L (8-16) Blood Urea Nitrogen 18 mg/dL (7-26) Creatinine 0.68 mg/dL (0.57-1.11) Estimat Glomerular Filtration Rate > 60 ML/MIN (60-) BUN/Creatinine Ratio 26 (6-25) Glucose Level 104 mg/dL (74-118) Calcium Level 9.0 mg/dL (8.4-10.2) Total Bilirubin 0.4 mg/dL (0.2-1.2) Aspartate Amino Transf (AST/SGOT) 21 IU/L (5-34) Alanine Aminotransferase (ALT/SGPT) 14 IU/L (0-55) Alkaline Phosphatase 89 IU/L (40-150) Total Protein 6.3 g/dL (6.5-8.1) Albumin 3.9 g/dL (3.5-5.0) Globulin 2.4 g/dL (2.3-3.5) Albumin/Globulin Ratio 1.6 (0.8-2.0) Amylase Level 59 U/L (25-125) Lipase 12 U/L (8-78) Lab results reviewed: Yes Imaging Imaging results reviewed: Yes Impressions CT ABD PELVIS IMPRESSION: 1. No acute abnormalities in the left lower quadrant to explain the patient's pain. 2. Findings in the mid ileum are indeterminate. This may represent lymphomatous involvement of the small bowel, however, a primary small bowel malignancy such as adenocarcinoma is also considered. Focal inflammatory enteritis (given the patient's age), or infectious enteritis is less likely. No focal mass is noted in the large bowel, however, direct visualization with endoscopy is recommended for further evaluation. 3. Retroperitoneal, and bilateral pelvic adenopathy, as described consistent with known history of lymphoma. 4. Descending and sigmoid colon diverticulosis, without diverticulitis. 5. Very large simple renal cysts, as described. Assessment & Plan Medical Decision Making MDM pt with llq pain for 1 day cbc, cmp, ua, ct shoaib/pelvis ordered to eval for uti, diverticulitis, elevated lft's, electrolyte abnormality PT LIKELY WITH EARLY DIVERTICULITIS BASED ON EXAM AND DIVERTICULOSIS ON CT CIPRO 500 MG PO BID FOR 10 DAYS, FLAGYL 500 MG PO BID FOR 10 DAYS PT DISCHARGED HOME TO FOLLOW UP WITH PCP Assessment & Plan Final Impression: (1) Diverticulitis (2) Abdominal pain Depart Disposition: HOME, SELF-CARE Last Vital Signs Date Time Temp Pulse Resp B/P (MAP) Pulse Ox O2 Delivery O2 Flow Rate FiO2 01/30/20 19:44 98.2 78 16 124/67 96 Home Meds Reported Medications Cetirizine Hcl/Pseudoephedrine (ZYRTEC-D TABLET) 1 Each Tab.er.12h, 1 TAB PO DAILY PRN for NASAL CONGESTION 09/22/18 Cephalexin Monohydrate (KEFLEX) 500 Mg Capsule, 500 MG PO TIDWM 09/22/18 Benzonatate (TESSALON PERLE) 100 Mg Capsule, 100 MG PO Q4HR PRN for COUGH 09/22/18 Cholestyramine (With Sugar) (CHOLESTYRAMINE PACKET) 4 Gm Packet, 4 GM PO DAILY 09/20/18 Chlorambucil (LEUKERAN) 2 Mg Tablet 09/20/18 Meloxicam (MELOXICAM) 7.5 Mg Tablet, 7.5 MG PO DAILY 09/20/18 EMILEE JOHNS MD Jan 30, 2020 19:58
[2020-01-30] MEDS ORDERED: DIATRIZOATE MEGL/DIATRIZOA SOD 30 ML BTL PO ONE (20:11)
[2020-01-30 20:25] LABS: BASOPHILS % 0.3 % (0.0-1.0); EOSINOPHILS # (AUTO) 0.1 (0.0-0.4); EOSINOPHILS % 0.6 % (0.0-6.0); HEMATOCRIT 31.5 % (34.2-44.1); HEMOGLOBIN 9.8 g/dL (12.0-16.0); LYMPHOCYTES # (AUTO) 9.8 (1.0-3.2); MEAN CORPUSCULAR HEMOGLOBIN 31.5 pg (28-32); MEAN CORPUSCULAR HGB CONC 31.1 g/dL (31-35); MEAN CORPUSCULAR VOLUME 101.3 fL (81-99); MONOCYTES % 14.1 % (4.4-11.3); NEUTROPHILS # (AUTO) 2.2 (2.1-6.9); NEUTROPHILS % 15.8 % (38.7-80.0); PLATELET COUNT 132 x10e3/uL (140-360); RED BLOOD COUNT 3.11 x10e6/uL (3.6-5.1); RED CELL DISTRIBUTION WIDTH 14.6 % (11.7-14.4)
[2020-01-30 20:43] LABS: ALANINE AMINOTRANSFERASE 14 IU/L (0-55); ALBUMIN 3.9 g/dL (3.5-5.0); ALBUMIN/GLOBULIN RATIO 1.6 (0.8-2.0); ALKALINE PHOSPHATASE 89 IU/L (40-150); BILIRUBIN,URINE NEGATIVE (NEGATIVE); BLOOD UREA NITROGEN 18 mg/dL (7-26); BUN/CREATININE RATIO 26 (6-25); CARBON DIOXIDE 31 mmol/L (22-29); CHLORIDE 104 mmol/L (98-107); CLARITY,URINE SL CLOUDY (CLEAR); COLOR,URINE YELLOW (YELLOW); CREATININE, SERUM 0.68 mg/dL (0.57-1.11); EST GLOMERULAR FILTRATION RATE > 60 ML/MIN (60-); GLUCOSE 104 mg/dL (74-118); KETONES,URINE NEGATIVE (NEGATIVE); LEUKOCYTE ESTERASE ,URINE NEGATIVE (NEGATIVE); NITRITE,URINE NEGATIVE (NEGATIVE); PROTEIN,URINE DIPSTICK NEGATIVE (NEGATIVE); SODIUM 140 mmol/L (136-145); URINE UROBILINOGEN 1 mg/dL (0.2 - 1)
[2020-01-30 20:46] LABS: AMYLASE 59 U/L (25-125); LIPASE 12 U/L (8-78)
[2020-01-30 20:55] LABS: AMORPHOUS SEDIMENT,URINE MODERATE (FEW); BACTERIA,URINE MODERATE /HPF; EPITHELIAL CELLS,URINE FEW /LPF
[2020-01-30 21:34] LABS: LYMPHOCYTES % (MANUAL) 81 % (19-48); MONOCYTES % (MANUAL) 1 % (3.4-9.0); NEUTROPHILS % (MANUAL) 16 % (40-74); PLATELET ESTIMATE ADEQUATE; PLATELET MORPHOLOGY COMMENT NORMAL; RBC MORPHOLOGY COMMENT NORMAL
--- NOTE | 2020-01-30 22:21 | Diagnostic Imaging Report ---
EXAMINATION: CT of the abdomen and pelvis with contrast. TECHNIQUE: Spiral CT images of the abdomen and pelvis were performed from the lung bases to the lesser trochanters after the intravenous administration of 100 cc of Isovue 370 and the oral administration of dilute Gastrografin. Coronal and sagittal reformatted images were obtained. COMPARISON: None. CLINICAL HISTORY:Left lower quadrant pain for a few days, stomach pain, history of lymphoma DISCUSSION: ABDOMEN/PELVIS: LOWER THORAX:Small fat-containing left posterior diaphragmatic hernia (best seen on sagittal image 93). Lung bases are grossly clear. Atherosclerotic calcification of the coronary arteries and aortic valves. HEPATOBILIARY: No focal hepatic lesions. Mild prominence of the central intrahepatic bile ducts and mild dilation of the common bile duct, which measures approximately 7-8 mm at the kiran hepatis. No radiopaque intraluminal filling defects. GALLBLADDER: There are cholecystectomy clips. SPLEEN: Spleen is borderline to minimally enlarged, measuring 12.4 cm in AP diameter. At least 3 ill-defined hypodense lesions are noted in the spleen, which measure approximately 6-8 mm (series 2, images 15, and 28). PANCREAS: No focal masses or ductal dilatation. ADRENALS: No adrenal nodules. KIDNEYS/URETERS: Right: Normal renal or ureteral calculi, hydronephrosis or obstruction. No solid enhancing masses. 9.4 x 7.9 x 10.3 cm mostly exophytic fluid density simple cyst which arises from the lateral mid and inferior aspects. Additional 1.2 cm mostly exophytic cyst in the lateral mid to inferior aspect (series 2, image 24). Other subcentimeter hypodense lesions are too small to characterize but likely represent small cysts. Left: No renal or ureteral calculi, hydronephrosis or obstruction. No solid enhancing masses. 10.4 x 13.0 x 10.9 cm and 5.8 x 6.5 x 5.7 cm mostly exophytic, well-circumscribed fluid density simple cyst in the inferior pole. 4.7 x 2.7 x 4.5 cm fluid density simple cyst in the superior pole (series 2, image 25). 2.9 x 2.0 x 2.3 cm fluid density simple cyst in the anterior interpolar region (series 2, image 32). 1.6 and 1.2 cm fluid density simple cyst in the superior to mid aspect (series 2, images 28 and 29). Other subcentimeter hypodensities are too small to characterize but likely represent small cysts. PELVIC ORGANS/BLADDER: Bladder is . Atrophic uterus. No adnexal masses. PERITONEUM/RETROPERITONEUM: No free air or fluid. LYMPH NODES: Enlarged left external iliac lymph nodes, which measure 1.3 and 1.1 cm in short axis (series 2, image 70). Borderline enlarged left external iliac lymph node which measures 1.0 cm in short axis (series 2, image 71). Enlarged left internal iliac lymph node which measures 1.1 cm in short axis (series 2, image 63). Enlarged right internal iliac lymph node which measures 1.1 cm in short axis (series 2, image 60). Enlarged right external iliac lymph nodes which measure 1.1 cm, 1.1 cm and 1.7 cm in short axis (series 2, image 72, 70 and 76). Mildly enlarged aortocaval lymph node which measures 1.0 cm in short axis (series 2, image 48). VESSELS: The celiac trunk,superior and inferior mesenteric and bilateral renal arteries are patent The portal, superior mesenteric and splenic veins are patent. Atherosclerotic calcification of the abdominal aorta and iliac vessels. GI TRACT: Oral contrast is noted in the stomach, mid and distal small bowel and the ascending, transverse and descending colon. Lipomatous hypertrophy of the ileocecal valve. Approximately 4 cm segment of the mid ileum in the right lower quadrant which shows moderate wall thickening (series 2, image 54) and minimal associated fat stranding (series 2, image 71 and coronal image 43), with mild prominence of the vasa recta. Descending and sigmoid colon diverticulosis, without diverticulitis. No other areas of wall thickening are identified. The stomach is grossly unremarkable. BONES AND SOFT TISSUE: No aggressive lytic or focal suspicious focal sclerotic lesions. Multilevel degenerative disc in the lower thoracic and lumbosacral spine, worse at L5-S1. Mild grade 1 anterolisthesis of L4 on L5. Facet hypertrophy L4-L5 and L5-S1. Neural stimulator wire is noted in the spinal canal, terminating at the left L3-L4 foramen. Soft tissues are grossly unremarkable. IMPRESSION: 1. No acute abnormalities in the left lower quadrant to explain the patient's pain. 2. Findings in the mid ileum are indeterminate. This may represent lymphomatous involvement of the small bowel, however, a primary small bowel malignancy such as adenocarcinoma is also considered. Focal inflammatory enteritis (given the patient's age), or infectious enteritis is less likely. No focal mass is noted in the large bowel, however, direct visualization with endoscopy is recommended for further evaluation. 3. Retroperitoneal, and bilateral pelvic adenopathy, as described consistent with known history of lymphoma. 4. Descending and sigmoid colon diverticulosis, without diverticulitis. 5. Very large simple renal cysts, as described. Signed by: Dr. Seth Coyne M.D. on 01/30/2020 10:18 PM
[2020-01-30] MEDS ORDERED: IOPAMIDOL 370 MG/ML 200 ML INFUS..BTL INJ ONE (22:46)
[2020-01-30] MEDS ORDERED: SODIUM CHLORIDE 0.9% 50ML 50 ML ONE (22:46)
== END 2020-01-31 00:23 | disposition home or self-care (01) ==
LOC: ER 18:56
DX: R10.32 Left lower quadrant pain (principal); K57.92 Diverticulitis of intestine, part unspecified, without perforation or abscess without bleeding; F03.90 Unspecified dementia, unspecified severity, without behavioral disturbance, psychotic disturbance, mood disturbance, and anxiety; M54.9 Dorsalgia, unspecified; G89.29 Other chronic pain; Z85.72 Personal history of non-Hodgkin lymphomas
CPT/HCPCS: 36415; 74177; 80053; 81001; 82150; 83690; 85025; 99283; Q9967

== ENCOUNTER → 2020-02-01 | Emergency (ER) | payer MEDICARE ==
[~2020-02-01] VITALS: Ht 160 cm; Wt 68.0 kg
[~2020-02-01] MED LIST changes: +DICYCLOMINE HCL 20 MG/2 ML VIAL IM ONE; +IOPAMIDOL 370 MG/ML 200 ML INFUS..BTL INJ ONE; +SODIUM CHLORIDE 0.9% 50ML 0 ML ONE
[2020-02-01 17:29] LABS: BASOPHILS % 0.1 % (0.0-1.0); EOSINOPHILS % 0.5 % (0.0-6.0); HEMATOCRIT 28.4 % (34.2-44.1); LYMPHOCYTES # (AUTO) 5.5 (1.0-3.2); LYMPHOCYTES % 67.9 % (18.0-39.1); MEAN CORPUSCULAR HEMOGLOBIN 31.3 pg (28-32); MEAN CORPUSCULAR HGB CONC 31.7 g/dL (31-35); MEAN CORPUSCULAR VOLUME 98.6 fL (81-99); MONOCYTES # (AUTO) 1.2 (0.2-0.8); MONOCYTES % 14.8 % (4.4-11.3); NEUTROPHILS # (AUTO) 1.3 (2.1-6.9); NEUTROPHILS % 16.5 % (38.7-80.0); PLATELET COUNT 124 x10e3/uL (140-360); RED BLOOD COUNT 2.88 x10e6/uL (3.6-5.1); RED CELL DISTRIBUTION WIDTH 14.7 % (11.7-14.4)
[2020-02-01 17:37] LABS: INR 0.96; PROTHROMBIN TIME 13.4 seconds (11.9-14.5)
[2020-02-01 17:38] LABS: PARTIAL THROMBOPLASTIN TIME 23.7 seconds (23.8-35.5)
[2020-02-01 17:48] LABS: ALANINE AMINOTRANSFERASE 11 IU/L (0-55); ALBUMIN 3.5 g/dL (3.5-5.0); ALBUMIN/GLOBULIN RATIO 1.7 (0.8-2.0); ALKALINE PHOSPHATASE 79 IU/L (40-150); AMYLASE 46 U/L (25-125); ANION GAP 8.9 mmol/L (8-16); BLOOD UREA NITROGEN 17 mg/dL (7-26); BUN/CREATININE RATIO 24 (6-25); CALCIUM 9.1 mg/dL (8.4-10.2); CARBON DIOXIDE 30 mmol/L (22-29); CHLORIDE 104 mmol/L (98-107); CREATINE KINASE 26 IU/L (29-168); CREATININE, SERUM 0.72 mg/dL (0.57-1.11); EST GLOMERULAR FILTRATION RATE > 60 ML/MIN (60-); GLUCOSE 117 mg/dL (74-118); LIPASE 10 U/L (8-78); POTASSIUM 3.9 mmol/L (3.5-5.1); SODIUM 139 mmol/L (136-145)
--- NOTE | 2020-02-01 17:57 | Diagnostic Imaging Report ---
EXAMINATION: CHEST SINGLE (PORTABLE) INDICATION: ^ABD PAIN ^[id number] ^[id number] COMPARISON: None FINDINGS: AP view TUBES and LINES: None. LUNGS/PLEURA: Lungs are well inflated. There are multiple bilateral patchy opacities. There is no pleural effusion or pneumothorax. HEART AND MEDIASTINUM: The cardiomediastinal silhouette is unremarkable. BONES AND SOFT TISSUES: No acute osseous lesion. Soft tissues are unremarkable. UPPER ABDOMEN: No free air under the diaphragm. IMPRESSION: Multiple bilateral patchy opacities could represent multifocal pneumonia, or pulmonary edema. Signed by: Naseem Arreola MD on 02/01/2020 5:54 PM
[2020-02-01 18:14] LABS: BILIRUBIN,URINE NEGATIVE (NEGATIVE); CLARITY,URINE SL CLOUDY (CLEAR); COLOR,URINE YELLOW (YELLOW); KETONES,URINE NEGATIVE (NEGATIVE); LEUKOCYTE ESTERASE ,URINE TRACE (NEGATIVE); NITRITE,URINE NEGATIVE (NEGATIVE); PROTEIN,URINE DIPSTICK NEGATIVE (NEGATIVE); URINE UROBILINOGEN 0.2 mg/dL (0.2 - 1)
--- NOTE | 2020-02-01 18:21 | Emergency Department Note ---
History of Present Illnes History of Present Illness Chief Complaint: Abdominal Complaints History of Present Illness This is a 84 year old female C/O abdominal pain & nausea. Seen here 2 days ago for same. 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 Any updates have been documented here. Past Medical History Recent Fever: No Clinical Suspicion of Infectio: No New/Unexplained Change in Ment: No Past Medical History: None Other Medical History: LEUKEMIA DEMENTIA OA LYMPHOMA CHRONIC BACK PAIN Past Surgical History: Other Surgery: LT KNEE SURGERY PAIN MANAGEMENT DEVICE Social History Smoking Cessation: Never Smoker Alcohol Use: None Any Illegal Drug Use: No TB Exposure/Symptoms: No Physically hurt or threatened: No Family History Family history of heart diseas: No Other Last Tetanus: unknown Any Pre-Existing Lines (PICC,: No Last Flu: unknown Last Pneumovax: unknown Review of Systems Review of Systems Constitutional: Reports no symptoms EENTM: Reports no symptoms Cardiovascular: Reports no symptoms Respiratory: Reports no symptoms Gastrointestinal: Reports as per HPI, Reports abdominal pain Genitourinary: Reports no symptoms Musculoskeletal: Reports no symptoms Integumentary: Reports no symptoms Neurological: Reports no symptoms Psychological: Reports no symptoms Endocrine: Reports no symptoms Hematological/Lymphatic: Reports no symptoms Physical Exam Related Data Allergies: Coded Allergies: No Known Drug Allergies (Verified Allergy, Unknown, 09/20/18) Triage Vital Signs Vital Signs Date Time Temp Pulse Resp B/P (MAP) Pulse Ox O2 Delivery O2 Flow Rate FiO2 02/01/20 16:22 75 18 102/53 94 02/01/20 16:40 98.8 Vital signs reviewed: Yes Physical Exam CONSTITUTIONAL Constitutional: Present well-developed, Present well-nourished, Present obese HENT HENT: Present normocephalic, Present atraumatic, Present oropharynx clear/moist, Present nose normal HENT L/R: Present left ext ear normal, Present right ext ear normal EYES Eyes: Reports PERRL, Reports conjunctivae normal NECK Neck: Present ROM normal PULMONARY Pulmonary: Present effort normal, Present breath sounds normal CARDIOVASCULAR Cardiovascular: Present regular rhythm, Present heart sounds normal, Present capillary refill normal, Present normal rate GASTROINTESTINAL Abdominal: Present soft, Present bowel sounds normal, Present tender (mild JAE tenderness without R/G) GENITOURINARY Genitourinary: Present exam deferred SKIN Skin: Present warm, Present dry MUSCULOSKELETAL Musculoskeletal: Present ROM normal NEUROLOGICAL Neurological: Present alert, Present oriented x 3, Present no gross motor or sensory deficits PSYCHOLOGICAL Psychological: Present mood/affect normal, Present judgement normal Results Laboratory Result Diagram: 02/01/20 1625 02/01/20 1625 Laboratory Laboratory Tests Test 02/01/20 17:43 02/01/20 16:25 Urine Color Yellow (YELLOW) Urine Clarity Sl cloudy (CLEAR) Urine pH 6 (5 - 7) Urine Specific [place] 1.020 (1.010-1.025) Urine Protein Negative (NEGATIVE) Urine Glucose (UA) Negative (NEGATIVE) Urine Ketones Negative (NEGATIVE) Urine Blood Negative (NEGATIVE) Urine Nitrite Negative (NEGATIVE) Urine Bilirubin Negative (NEGATIVE) Urine Urobilinogen 0.2 mg/dL (0.2 - 1) Urine Leukocyte Esterase Trace (NEGATIVE) White Blood Count 8.09 x10e3/uL (4.8-10.8) Red Blood Count 2.88 x10e6/uL (3.6-5.1) Hemoglobin 9.0 g/dL (12.0-16.0) Hematocrit 28.4 % (34.2-44.1) Mean Corpuscular Volume 98.6 fL (81-99) Mean Corpuscular Hemoglobin 31.3 pg (28-32) Mean Corpuscular Hemoglobin Concent 31.7 g/dL (31-35) Red Cell Distribution Width 14.7 % (11.7-14.4) Platelet Count 124 x10e3/uL (140-360) Neutrophils (%) (Auto) 16.5 % (38.7-80.0) Lymphocytes (%) (Auto) 67.9 % (18.0-39.1) Monocytes (%) (Auto) 14.8 % (4.4-11.3) Eosinophils (%) (Auto) 0.5 % (0.0-6.0) Basophils (%) (Auto) 0.1 % (0.0-1.0) Neutrophils # (Auto) 1.3 (2.1-6.9) Lymphocytes # (Auto) 5.5 (1.0-3.2) Monocytes # (Auto) 1.2 (0.2-0.8) Eosinophils # (Auto) 0.0 (0.0-0.4) Basophils # (Auto) 0.0 (0.0-0.1) Absolute Immature Granulocyte (auto 0.02 x10e3/uL (0-0.1) Prothrombin Time 13.4 seconds (11.9-14.5) Prothromb Time International Ratio 0.96 Activated Partial Thromboplast Time 23.7 seconds (23.8-35.5) Sodium Level 139 mmol/L (136-145) Potassium Level 3.9 mmol/L (3.5-5.1) Chloride Level 104 mmol/L (98-107) Carbon Dioxide Level 30 mmol/L (22-29) Anion Gap 8.9 mmol/L (8-16) Blood Urea Nitrogen 17 mg/dL (7-26) Creatinine 0.72 mg/dL (0.57-1.11) Estimat Glomerular Filtration Rate > 60 ML/MIN (60-) BUN/Creatinine Ratio 24 (6-25) Glucose Level 117 mg/dL (74-118) Calcium Level 9.1 mg/dL (8.4-10.2) Total Bilirubin 0.4 mg/dL (0.2-1.2) Aspartate Amino Transf (AST/SGOT) 20 IU/L (5-34) Alanine Aminotransferase (ALT/SGPT) 11 IU/L (0-55) Alkaline Phosphatase 79 IU/L (40-150) Creatine Kinase 26 IU/L (29-168) Creatine Kinase MB 0.90 ng/mL (0-5.0) Troponin I 0.010 ng/mL (0-0.300) B-Type Natriuretic Peptide 51.4 pg/mL (0-100) Total Protein 5.6 g/dL (6.5-8.1) Albumin 3.5 g/dL (3.5-5.0) Globulin 2.1 g/dL (2.3-3.5) Albumin/Globulin Ratio 1.7 (0.8-2.0) Amylase Level 46 U/L (25-125) Lipase 10 U/L (8-78) Lab results reviewed: Yes Imaging Imaging results reviewed: Yes Procedures 12 Lead ECG Interpretation ECG Interpretation : ECG: ECG 1 Supervisor [employer] Coating: Interpreted by ED physician Date: Feb 01, 2020 Time: 17:48 Rhythm: sinus rhythm Rate: normal (67) QRS axis: normal ST segments normal: Yes T waves normal: Yes Clinical Impression: normal ECG Assessment & Plan Medical Decision Making MDM CBC, CHEM'S, RICH/LIPASE, CARDIAC MARKERS, ECG, CXR, UA - R/O ELECTROLYTE ABNL, RENAL INSUFF, PNEUMONIA, STEMI/NSTEMI, PANCREATITIS. PT JUST HAD CT ABD/PELVIS 2 D AGO WHICH I REVIEWED - APPEARS TO BE LYMPHOMATOUS INVOLVEMENT OF SM BOWEL BUT COULD ALSO BE ENTERITIS AND WAS PUT ON CIPRO/FLAGYL. Reassessment Reassessment PT NEEDS TO F/U WITH HER ONCOLOGIST AND GI MD INSTRUCTED 2 DAYS AGO. IMPROVED HERE WITH [facility] - WITH GIVE RX FOR [facility] Assessment & Plan Final Impression: (1) Abdominal pain Depart Disposition: HOME, SELF-CARE Last Vital Signs Date Time Temp Pulse Resp B/P (MAP) Pulse Ox O2 Delivery O2 Flow Rate FiO2 02/01/20 16:40 98.8 68 19 113/47 95 Home Meds Reported Medications Cetirizine Hcl/Pseudoephedrine (ZYRTEC-D TABLET) 1 Each Tab.er.12h, 1 TAB PO DAILY PRN for NASAL CONGESTION 09/22/18 Cephalexin Monohydrate (KEFLEX) 500 Mg Capsule, 500 MG PO TIDWM 09/22/18 Benzonatate (TESSALON PERLE) 100 Mg Capsule, 100 MG PO Q4HR PRN for COUGH 09/22/18 Cholestyramine (With Sugar) (CHOLESTYRAMINE PACKET) 4 Gm Packet, 4 GM PO DAILY 09/20/18 Chlorambucil (LEUKERAN) 2 Mg Tablet 09/20/18 Meloxicam (MELOXICAM) 7.5 Mg Tablet, 7.5 MG PO DAILY 09/20/18 SOHEILA MARTINEZ MD Feb 01, 2020 18:21
[2020-02-01 18:27] LABS: BACTERIA,URINE MODERATE /HPF; EPITHELIAL CELLS,URINE FEW /LPF; MUCUS,URINE MANY (RARE); WBC,URINE (MAN) 0-5 /HPF (0-5)
[2020-02-01 19:55] VITALS: BP 122/49
[2020-02-01 22:04] LABS: LYMPHOCYTES % (MANUAL) 45 % (19-48); MONOCYTES % (MANUAL) 1 % (3.4-9.0); NEUTROPHILS % (MANUAL) 21 % (40-74); PLATELET ESTIMATE ADEQUATE; PLATELET MORPHOLOGY COMMENT NORMAL; RBC MORPHOLOGY COMMENT NORMAL
== END | disposition home or self-care (01) ==
LOC: ER 16:09
DX: R10.9 Unspecified abdominal pain (principal); R11.0 Nausea; F03.90 Unspecified dementia, unspecified severity, without behavioral disturbance, psychotic disturbance, mood disturbance, and anxiety; Z85.6 Personal history of leukemia; Z85.72 Personal history of non-Hodgkin lymphomas
CPT/HCPCS: 36415; 71045; 80053; 81001; 82150; 82550; 82553; 83690; 83880; 84484; 85025; 85610; 85730; 87086; 93005; 99284; J0500; Q9967